=== PATIENT | female | born 1995 | race Two or more races ===

== ENCOUNTER 2024-05-05 11:10 | Emergency (ER) | payer MEDICAID, SELFPAY ==
[2024-05-05 11:17] VITALS: PULSE 67; RESP 20; TEMP 36.7; O2SAT 95
[2024-05-05 11:23] VITALS: PULSE 71; O2SAT 96; BMI 22.4
--- NOTE | 2024-05-05 11:23 | PC.NURSE ---
[place]; PER EMS REPORT, PT COMING IN FOR 5150 HOLD PLACED BY [facility]. PT WAS ERRATIC AND UNABLE TO FORM PLAN FOR FOOD & SNF. PT IS GRAVELY DISABLED. UNABLE TO GET ANY PMH. UPON ARRIVAL, PT WAS IMPULSIVE AND ERRATIC AND RECKLESS. PT UNABLE TO CONCENTRATE AND RESPOND APPROPRIATELY TO QUESTIONS. PT IS A POOR HISTORIAN. 1:[address] FOR PT.
--- NOTE | 2024-05-05 11:26 | EDNOTE_ITS ---
ED Psych RME/HPI General Chief Complaint: Psychiatric Symptoms Stated Complaint: 5150 HOLD Time Seen by Provider: 05/05/24 11:24 Arrival date/time: 05/05/24 11:10 RME / HPI RME / HPI Narrative: 29 year old female with history of schizophrenia presents to the ED BIBA on a 5150 hold placed by clinician at [facility]. Per the 5150 report, the patient was displaying bizarre behavior and were unable to safety plan with her. While in the ED patient is agitated and difficult to redirect, no further history obtainable. Related Data Home Medications ?Medication ?Instructions ?Recorded ?Confirmed Unobtainable 12/29/21 12/29/21 Allergies Allergy/AdvReac Type Severity Reaction Status Date / Time NKA* Allergy Uncoded 12/10/23 10:15 Review of Systems Review of Systems ROS Unobtainable: unobtainable due to mental status Past Medical History Past Medical History CARDIAC: Negative Congestive Heart Failure RESPIRATORY: Negative Chronic Obstructive Pulmonary Disease (COPD) GENITOURINARY: Negative Renal Disease ENDOCRINE: Negative Diabetes Mellitus Type 1 or Diabetes Mellitus Type 2 PSYCHO/SOCIAL: Positive Schizophrenia Social History SMOKING STATUS: Never smoker ED Exam Narrative Physical exam: GENERAL APPEARANCE:?Awake, agitated, difficult to redirect HEENT: normocephalic, atraumatic; dry MM NECK: supple LUNGS: no respiratory distress, normal effort HEART: Tachycardic, good peripheral perfusion ABDOMEN: non distended EXTREMITIES:?atraumatic NEUROLOGIC: awake; cranial nerves II-XII grossly intact PSYCHIATRIC:? Agitated, difficult to redirect SKIN: warm, dry, normal color; no rashes Course Course Course Narrative: 1800: Patient was signed out to Dr. Em. Past medical, surgical, social and family history reviewed. Vitals and home medications reviewed. Results and treatment plan discussed. They will assume the care of the patient at this time and will follow the patient, pending psychiatric placement. Quality Measures none Orders Category Date Time Status CBC Stat Lab 05/05/24 11:40 Completed CMP [Comprehensive Metabolic Panel] Stat Lab 05/05/24 11:40 Completed Drug Screen,Urine Stat Lab 05/05/24 12:22 Completed Magnesium Stat Lab 05/05/24 11:40 Completed UA, C/S IF [Urinalysis, C/S if Indicated] Stat Lab 05/05/24 12:22 Completed DiphenhydrAMINE INJ [Benadryl Inj] Med 05/05/24 12:36 Discontinued 50 mg IM X1 ONE Haloperidol Lactate [Haldol Inj] Med 05/05/24 12:36 Discontinued 5 mg IM X1 ONE LORazepam [Ativan Inj] Med 05/05/24 12:36 Discontinued 2 mg IM X1 ONE Vital Signs Vital signs: Vital Signs Temperature 98.1 F 05/05/24 11:17 Pulse Rate 67 05/05/24 11:17 Respiratory Rate 20 05/05/24 11:17 Pulse Oximetry (%) 95 05/05/24 11:17 Oxygen Delivery Method Room Air 05/05/24 11:17 Pulse ox is 95% on room air which is adequate. Psych MDM Narrative MDM Narrative:: Renetta Pimentel am scribing for and in the presence of Dr. Miramontes. Patient data External records reviewed:: [facility] previous records (I reviewed ED visit on 2023 where she was transferred 12/11/2023 to [facility] ) and Other (specify) (I reviewed 5150 report written by clinician at [facility] ) Clinical information provided by:: EMS Social determinants that could affect healthcare access:: mental health Patient has the following chronic illnesses:: Schizophrenia How is presenting disease/condition affected by chronic disease/condition?: exacerbated by Evaluation data The following diagnostics were reviewed and interpreted by me:: lab results Lab and/or radiology exams considered but not ordered:: None Interpretation Summary: Patient tested positive for methamphetamine and marijuana. Medications / Prescriptions Medications or Prescriptions considered but not ordered:: None Medication administrations:: Medication Administration History Discontinued Medications Diphenhydramine HCl (Diphenhydramine Inj 50 Mg/Ml Vial) 50 mg IM X1 ONE Stop: 05/05/24 12:37 Last Admin: 05/05/24 12:45 Dose: 50 mg Documented By: GM Haloperidol Lactate (Haloperidol Lact Inj 5 Mg/Ml Vial) 5 mg IM X1 ONE Stop: 05/05/24 12:37 Last Admin: 05/05/24 12:44 Dose: 5 mg Documented By: GM Lorazepam (Lorazepam 2 Mg/Ml Vial) 2 mg IM X1 ONE Stop: 05/05/24 12:37 Last Admin: 05/05/24 12:44 Dose: 2 mg Documented By: GM see above Consultations Consultation(s) initiated? (list below): No Diagnosis Psych Differential Diagnosis: acute psychosis, chronic schizophrenia, drug-induced psychotic disorder and acute anxiety Most likely diagnosis given after review of the tests above:: Chronic schizophrenia Admission Indicated Admission indicated?: not indicated Admission Request Was there a request for admission?: No Disposition Plan Disposition Plan: other (specify) (Patient signout to the shift superintendent caustic cresylate provider, pending psychiatric placement.) Discharge Plan Prescriptions/Referrals Prescriptions/Med Rec: No Action Unobtainable Referrals: Darrin Nunez MD [Primary Care Provider] - In 1 week Problem List Clinical Impression: Chronic schizophrenia Patient/Caregiver Discharge Instructions Print Language: Norwegian
[2024-05-05 11:50] LABS: Basophils % (Auto) 0 % (0-2.5); Eosinophils # (Auto) 0.2 Thou/mm3 (0.0-0.5); Eosinophils % (Auto) 3 % (0-10); Hematocrit 37.5 % (36.0-46.0); Hemoglobin 12.2 g/dL (12.0-16.0); Immature Granulocytes % (Auto) 0 % (0-0); Immature Granulocytes Auto 0.02 Thou/mm3 (0.00-0.00); Lymphocytes % (Auto) 25 % (10-50); Mean Corpuscular HGB Conc 32.5 g/dl (31.0-37.0); Mean Corpuscular Hemoglobin 26.8 pg (25.0-35.0); Mean Corpuscular Volume 82 fL (80-100); Monocytes # (Auto) 0.6 Thou/mm3 (0.0-0.8); Monocytes % (Auto) 8 % (0-12); Neutrophils % (Auto) 64 % (37-80); Nucleated Red Blood Cell % 0 /100 WBC (0); Platelet Count 437 Thou/mm3 (140-440); RDW Standard Deviation 52.3 fL (36.4-46.3); Red Blood Count 4.55 Miln/mm3 (4.00-5.20); White Blood Count 7.8 Thou/mm3 (3.6-11.0)
[2024-05-05 12:10] LABS: Alanine Aminotransferase 14 U/L (10-49); Albumin, Serum 4.8 gm/dL (3.5-5.0); Alkaline Phosphatase 89 U/L (46-116); Anion Gap 8 (7-16); Aspartate Amino Transferase 19 U/L (0-34); BUN/Creatinine Ratio 17 Ratio (12-20); Bilirubin,Total 0.2 mg/dL (0.3-1.2); Blood Urea Nitrogen 12 mg/dL (9-23); Calcium 9.6 mg/dL (8.3-10.6); Calcium (Corrected) 9.6 mg/dL (8.5-10.1); Chloride 102 mMol/L (98-107); Creatinine (Component) 0.7 mg/dL (0.6-1.3); Estimated Creatinine Clearance 107.7 mL/min (>60); Globulin 2.4 gm/dL (2.3-3.5); Glucose 87 mg/dL (74-106); Osmolality,Calculated 274 (275-295); Potassium 3.8 mMol/L (3.4-5.1); Sodium 138 mMol/L (136-145); Total Protein 7.2 gm/dL (5.7-8.2); eGFR > 60 See Note
[2024-05-05 12:43] LABS: Collection Type, Urine Catheter
[2024-05-05] MEDS: HALOPERIDOL LACT INJ 5 MG/ML VIAL IM (12:44)
[2024-05-05] MEDS: LORazepam 2 MG/ML VIAL IM (12:44)
[2024-05-05] MEDS: DiphenhydrAMINE INJ 50 MG/ML VIAL IM (12:45)
[2024-05-05 12:49] LABS: Bilirubin,Urine Negative (Negative); Blood,Urine Negative (Negative); Clarity,Urine Clear (Clear/Hazy); Color,Urine Lt-Yellow (Lt Yel-Yel); Culture Indicated,Urine Not Indicated; Glucose, Urine Negative (Negative); Ketones,Urine Negative (Negative); Leukocyte Esterase,Urine Negative (Negative); Nitrite,Urine Negative (Negative); Protein,Urine Negative (Neg - Trace); RBC,Urine 1 /hpf (0-3); Specific Gravity,Urine 1.024 (1.001-1.035); Squamous Epithelial Cell,Urine < 1 /hpf (0-5); Urobilinogen,Urine Negative mg/dL (0.0-1.0); WBC,Urine 1 /hpf (0-5)
--- NOTE | 2024-05-05 14:39 | PC.CC ---
Addendum entered by Vijay Buck II 05/05/24 15:41: Clinical packet sent via [facility] and Fax to the following [facility] Addendum entered by Vijay Buck II 05/05/24 15:26: ASW informed pt is medically cleared. Clinical packet will be forwarded to LPS facilities at this time. Original Note: Pt Christa Cerrato is a 29 yr old female to ED via EMS from [facility] on 5150 hold for DTS/GD. Pt was unable to engage in assessment and [facility] staff unable to establish a valid safety plan. Upon arrival to ED pt presents interacting with external/internal stimuli. Pt is laughing and dancing inappropriately. Staff is able to re-direct pt. At this time pt is pending medical clearance. From review pt is chronically homeless and a poly substance user. Plan will be for ASW to send out clinical packet once pt is medically cleared for placement in LPS setting.
[2024-05-05 15:19] LABS: Amphetamine/Methamp Scrn,U Positive (Negative); Barbiturate Screen,Urine Negative (Negative); Benzodiazepines Screen,Urine Negative (Negative); Benzoylecgonine Screen, Ur Negative (Negative); Fentanyl Screen,Urine Negative (Negative); Opiate Screen,Urine Negative (Negative); THC Screen,Urine Positive (Negative)
[2024-05-05 16:13] VITALS: BP 106/63; PULSE 63; RESP 20; TEMP 36.7; O2SAT 95
--- NOTE | 2024-05-05 18:14 | EDNOTE_ITS ---
Emergency Room Addendum <Judy Doherty - Last Filed: 05/05/24 18:31> Addendum Narrative: 1800: Care assumed from Dr. Miramontes, the previous shift emergency physician. Past medical, surgical, social and family history reviewed. Vitals and home medications reviewed. I will assume the care of the patient at this time, pending psychiatric placement. The patient was placed in ED observation care at 05/05/2024 at 1800 hours. The patient was placed in ED observation care because of undifferentiated decompensated behavioral health evaluation, no behavioral health bed available. The plan of care will include serial examinations. Please refer to the emergency department record for history and examination.? While in ED observation the patient will have access to water, food, and personal hygiene. If the patient takes home medication(s), they will be contin ued in ED observation. Physical exam by me shows patient under no acute distress at this time. <Virgil Em MD - Last Filed: 05/06/24 03:57> Addendum Narrative: 1800 (05/05/24): Care assumed from Dr. Miramontes, see her notes for complete H&P and ED course. During my watch, the patient remained stable. At 6 PM on 05/06/2024, the care of the patient was transferred to Dr. MIRAMONTES.
[2024-05-05 18:43] VITALS: BP 121/81; PULSE 68; RESP 19; TEMP 37.1; O2SAT 100
[2024-05-05 20:08] LABS: Acetaminophen < 2.0 mcg/mL (10.0-20.0); Alcohol, Blood Medical < 3.0 mg/dL (0-10.0); Salicylate < 3.0 mg/dL
[2024-05-05 22:00] VITALS: BP 118/65; PULSE 68; RESP 16; TEMP 36.7; O2SAT 99
[2024-05-06 01:38] VITALS: BP 118/80; PULSE 70; RESP 16; TEMP 36.9; O2SAT 99
[2024-05-06 02:14] LABS: HCG Qualitative,Urine Negative
--- NOTE | 2024-05-06 06:11 | PC.CC ---
Shi MITCHELL resubmitted referral to LPS facilities via [facility]. Patient is pending psychiatric placement.
[2024-05-06 06:48] VITALS: BP 98/76; PULSE 74; RESP 18; TEMP 36.7; O2SAT 97
--- NOTE | 2024-05-06 07:37 | PC.CC ---
ASW, spoke to Justin at [facility] who reports they are able to accept patient. Accepting Dr. Zhu, Unit D, ASW made Dr. Miramontes, vacuum technician, Anneliese, and RN Wintre aware of discharge plan. ASW to arrange transportation.
--- NOTE | 2024-05-06 07:53 | PC.CC ---
ASW attempted to provide advisement to patient that she was accepted to [facility], but patient would no engage.
[2024-05-06 08:00] VITALS: BP 113/69; PULSE 76; RESP 19; TEMP 36.8; O2SAT 99
--- NOTE | 2024-05-06 10:22 | PC.NURSE ---
REPORT GIVEN TO CHENCHO AT [facility]
== END 2024-05-06 10:40 ==
PROVIDERS: Emergency Medicine; Emergency Provider Emergency Medicine; PCP Family Medicine
DX: F20.9 Schizophrenia, unspecified (principal)
CPT/HCPCS: 36415; 80053; 80307; 80320; 80329; 81001; 81025; 83735; 85025; 96127; 96372; 99285; J1200; J1630; J2060; G0480

== ENCOUNTER 2024-07-21 10:23 | Emergency (ER) | payer MEDICAID, SELFPAY ==
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
[2024-07-21 11:19] VITALS: BMI 27.8
[2024-07-21 11:36] LABS: Basophils % (Auto) 0 % (0-2.5); Eosinophils % (Auto) 1 % (0-10); Hematocrit 43.9 % (36.0-46.0); Hemoglobin 15.3 g/dL (12.0-16.0); Immature Granulocytes % (Auto) 0 % (0-0); Immature Granulocytes Auto 0.02 Thou/mm3 (0.00-0.00); Lymphocytes # (Auto) 1.1 Thou/mm3 (1.0-4.8); Lymphocytes % (Auto) 15 % (10-50); Mean Corpuscular HGB Conc 34.9 g/dl (31.0-37.0); Mean Corpuscular Hemoglobin 30.2 pg (25.0-35.0); Mean Corpuscular Volume 87 fL (80-100); Monocytes # (Auto) 0.4 Thou/mm3 (0.0-0.8); Monocytes % (Auto) 6 % (0-12); Neutrophils # (Auto) 5.8 Thou/mm3 (1.8-7.7); Neutrophils % (Auto) 78 % (37-80); Nucleated Red Blood Cell % 0 /100 WBC (0); Platelet Count 449 Thou/mm3 (140-440); RDW Standard Deviation 45.9 fL (36.4-46.3); Red Blood Count 5.06 Miln/mm3 (4.00-5.20); White Blood Count 7.5 Thou/mm3 (3.6-11.0)
[2024-07-21] MEDS: SODIUM CHLORIDE 0.9% 1000 ML 1,000 ML 999 ML IV (11:37)
[2024-07-21 11:40] VITALS: BP 127/83; PULSE 64; RESP 16; TEMP 36.5; O2SAT 100
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
[2024-07-21 12:03] LABS: Alanine Aminotransferase 19 U/L (10-49); Albumin, Serum 4.4 gm/dL (3.5-5.0); Albumin/Globulin Ratio 1.8 (1.2-2.2); Alcohol, Blood Medical < 3.0 mg/dL (0-10.0); Alkaline Phosphatase 87 U/L (46-116); Anion Gap 6 (7-16); Aspartate Amino Transferase 22 U/L (0-34); BUN/Creatinine Ratio 10 Ratio (12-20); Bilirubin,Total 0.4 mg/dL (0.3-1.2); Blood Urea Nitrogen 7 mg/dL (9-23); Calcium 9.6 mg/dL (8.3-10.6); Calcium (Corrected) 9.6 mg/dL (8.5-10.1); Carbon Dioxide 26.4 mMol/L (20.0-31.0); Chloride 106 mMol/L (98-107); Creatinine (Component) 0.7 mg/dL (0.6-1.3); Estimated Creatinine Clearance 108.9 mL/min (>60); Globulin 2.5 gm/dL (2.3-3.5); Glucose 85 mg/dL (74-106); Osmolality,Calculated 272 (275-295); Potassium 3.7 mMol/L (3.4-5.1); Sodium 138 mMol/L (136-145); Total Protein 6.9 gm/dL (5.7-8.2); Troponin I < 0.002 ng/mL (0.0-0.045); eGFR > 60 See Note
[2024-07-21 14:00] VITALS: BP 106/62; PULSE 85; RESP 16; TEMP 36.4; O2SAT 100
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
[2024-07-21 15:32] LABS: Collection Type, Urine Clean Catch
[2024-07-21 15:37] LABS: HCG Qualitative,Urine Negative
[2024-07-21 15:45] LABS: Amphetamine/Methamp Scrn,U Positive (Negative); Barbiturate Screen,Urine Negative (Negative); Benzodiazepines Screen,Urine Negative (Negative); Benzoylecgonine Screen, Ur Negative (Negative); Fentanyl Screen,Urine Negative (Negative); Opiate Screen,Urine Negative (Negative); THC Screen,Urine Positive (Negative)
[2024-07-21 15:51] LABS: Bacteria,Urine Rare; Bilirubin,Urine Negative (Negative); Blood,Urine 3+ (Negative); Clarity,Urine Turbid (Clear/Hazy); Color,Urine Yellow (Lt Yel-Yel); Glucose, Urine Negative (Negative); Ketones,Urine Trace (Negative); Leukocyte Esterase,Urine Negative (Negative); Nitrite,Urine Negative (Negative); PH,Urine 7.5 (5.0-7.0); Protein,Urine Trace (Neg - Trace); RBC,Urine 6 /hpf (0-3); Specific Gravity,Urine 1.025 (1.001-1.035); Squamous Epithelial Cell,Urine 18 /hpf (0-5); WBC,Urine 8 /hpf (0-5)
[2024-07-21 16:00] VITALS: BP 110/72; PULSE 85; RESP 16; TEMP 37; O2SAT 100
[2024-07-21 18:00] VITALS: BP 110/72; PULSE 88; RESP 16; TEMP 36.8; O2SAT 100
--- NOTE | 2024-07-21 19:52 | PD.EDADDENDU ---
Emergency Room Addendum Addendum Narrative: 1800: Care assumed from Dr. Saldaña, the previous shift emergency physician. Past medical, surgical, social and family history reviewed. Vitals and home medications reviewed. Results and treatment plan discussed. I will assume the care of the patient at this time and will follow the patient, pending 5150 placement. Please refer to the emergency department record for history and examination from initial visit. OBSERVATION NOTE: The patient was placed in ED observation care at 07/21/24 at 1800 hours. The patient was placed in ED observation care because of pending psychiatric evaluation and placement. The patients past medical history, social history, and family history were reviewed. 0600: Care signed out to the next oncoming physician. Past medical, surgical, social and family history reviewed. Vitals and home medications reviewed. Results and treatment plan discussed. They will assume the care of the patient at this time and will follow the patient.
[2024-07-21 20:00] VITALS: BP 116/76; PULSE 72; RESP 16; TEMP 36.7; O2SAT 98
[2024-07-22] VITALS: BP 114/72; PULSE 76; RESP 16; TEMP 36.6; O2SAT 98
--- NOTE | 2024-07-22 06:27 | EDNOTE_ITS ---
Emergency Room Addendum Addendum Narrative: 0600: Care assumed from Dr. Hogan, the previous shift emergency physician. Past medical, surgical, social and family history reviewed. Vitals and home medications reviewed. I will assume the care of the patient at this time, on a 5150 hold pending placement. Please refer to the emergency department record for history and examination from initial visit.? The patient was placed in ED observation care at 07/22/2024 at 0600 hours. The patient was placed in ED observation care because of undifferentiated decompensated behavioral health evaluation, no behavioral health bed available. The patients past medical history, social history, and family history were reviewed. The plan of care will include serial examinations. While in ED observation the patient will have access to water, food, and personal hygiene. If the patient takes home medication(s), they will be continued in ED observation. Physical exam by me shows patient under no acute distress at this time. 0750: Mental health evaluated the patient and patient continues to meet criteria for 5150-hold for Gravely Disabled. Patient is unable to engage in viable safety plan. 0950: Patient accepted to [facility], [place]. ETA p/u 1100. 1030: EMS here to transport the patient. ED observation care ended at 07/22/2024 at 0600 hours. Diagnoses: Psychosis, methamphetamine abuse
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
--- NOTE | 2024-07-22 08:26 | PC.CC ---
Patient was accepted to [facility] provided accepting information. Accepting Doctor is Serna. MITCHELL, to arrange transportation. ASW provided accepting information to Dr. Miramontes, Gino Terrell, and KINDRA Levi.
[2024-07-22 09:49] VITALS: BP 128/69; PULSE 72; RESP 18; TEMP 36.4; O2SAT 98
[2024-07-22 09:50] VITALS: BP 128/69; PULSE 72; RESP 18; TEMP 36.4; O2SAT 98
== END 2024-07-22 09:55 ==
PROVIDERS: Emergency Medicine; Emergency Provider Emergency Medicine
DX: F20.9 Schizophrenia, unspecified (principal); F15.10 Other stimulant abuse, uncomplicated
CPT/HCPCS: 36415; 80053; 80307; 80320; 81001; 81025; 83605; 84484; 85025; 87400; 87634; 87651; 87811; 90839; 96127; 96360; 99285; J7030; G0480

== ENCOUNTER 2024-08-19 12:08 | Emergency (ER) | payer MEDICAID, SELFPAY ==
[2024-08-19 12:10] VITALS: BP 119/78; PULSE 108; RESP 18; TEMP 36.9; O2SAT 98; BMI 25.6
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
== END 2024-08-19 13:02 ==
LOC: SERX 12:46
PROVIDERS: Emergency Provider Emergency Medicine
DX: Z02.89 Encounter for other administrative examinations (principal); Z65.3 Problems related to other legal circumstances; F20.9 Schizophrenia, unspecified; S00.11XA Contusion of right eyelid and periocular area, initial encounter; W50.0XXA Accidental hit or strike by another person, initial encounter
CPT/HCPCS: 99281

== ENCOUNTER 2025-02-27 11:51 | Emergency (ER) | payer MEDICAID, SELFPAY ==
[2025-02-27 11:55] VITALS: PULSE 96; O2SAT 98
[2025-02-27 12:00] VITALS: BP 119/79; PULSE 78; RESP 16; TEMP 37.3; O2SAT 97; BMI 24.3
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
--- NOTE | 2025-02-27 13:40 | PC.NURSE ---
PT WAS SLEEPING IN LOBBY WENT TO PT WOKE HER UP ASKED IF SHE WANTED TYLENOL SHE SAID NO AND NOT TO SCARE HER. I ADVISED WE HAD CALLED HER BUT SHE DID NOT ANSWER. I TOLD HER WE ARE HERE TO HELP AND IF SHE WAS SURE SHE DID NOT WANT TYLENOL SHE STATED NO ADVISED WE NEED URINE SHE STATED SHE CANT.
--- NOTE | 2025-02-27 13:40 | PC.NURSE ---
PT INFORMED ABOUT NEED FOR URINE AND SAYS I DON'T WASNT TO PEE.
--- NOTE | 2025-02-27 14:26 | PC.NURSE ---
THIS PT ASKED IF OK TO GIVE URINE SAMPLE AT THIS TIME; PER PT, NO I CAN'T. PT EDUCATED THAT URINE SAMPLE IS NEEDED FOR PT'S POC; PT REPLIED, I CAN'T. PT SITTING IN ED LOBBY AT THIS TIME.
== END 2025-02-27 15:10 | disposition home or self-care (01) ==
PROVIDERS: Emergency Provider Emergency Medicine
DX: M54.9 Dorsalgia, unspecified (principal)
CPT/HCPCS: 80307; 81001; 81025; 99281